=== PATIENT | female | born 1955 | race Native Hawaiian/Other Pacific Islander ===

== ENCOUNTER 2018-01-05 12:02 | Observation (INO) | payer BC ==
[~2018-01-05] VITALS: Ht 167.6 cm; Wt 108.4 kg
[~2018-01-05 12:02] MED LIST: ADIPEX PO; ALPR0.5T24 PO; CARV12.5 PO; CEFU250T2 PO; DULO60CA2 OR; ESGIC-PLUS PO; HYDR25TA60 PO; LORCET 5-325 MG1 TAB PO; MOBIC15 MG PO; NEXIUM40 MG PO; ONDA4TAB3 PO; TRIM800T12 PO; VICTOZA18 MG/3 ML SC
[2018-01-05 13:08] LABS: PLATELET COUNT 202 K/uL (152-353)
[2018-01-05 13:09] VITALS: BP 148/75; TEMP 97.5; Ht 167.6 cm; Wt 108.4 kg
[2018-01-05] MEDS ORDERED: FIORICET 50-3001 CAP PO (13:21)
[2018-01-05] MEDS ORDERED: ACET-655 PO (13:22)
[2018-01-05 13:23] LABS: POTASSIUM 3.7 mmol/L (3.6-5.2)
[2018-01-05] MEDS ORDERED: BYSTOLIC5 MG PO (13:23)
[2018-01-05] MEDS ORDERED: DEXILANT60 M1 PO (13:26)
[2018-01-05] MEDS ORDERED: TIZA4TAB5 PO (13:28)
[2018-01-05 16:23] VITALS: BP 134/75; TEMP 98.3
[2018-01-05 20:00] VITALS: BP 126/52; TEMP 97.8
[2018-01-06] VITALS: BP 131/56; TEMP 98.1
[2018-01-06 04:00] VITALS: BP 136/65; TEMP 97.9
[2018-01-06 06:39] LABS: PLATELET COUNT 182 K/uL (152-353)
[2018-01-06 06:49] LABS: POTASSIUM 3.7 mmol/L (3.6-5.2)
[2018-01-06 08:00] VITALS: BP 147/72; TEMP 97.8
--- NOTE | 2018-01-06 10:16 | NUR ---
DR. GREGORY MADE ROUND. Pt. TO D/C HOME.
--- NOTE | 2018-01-06 11:51 | NUR ---
IV D/C'd. DISCHARGE INSTRUCTION SIGNED AND GIVEN. Pt. EXIT OUT FRONT ENTRANCE VIA AMBULATING.
== END 2018-01-06 11:51 | disposition home or self-care (01) ==
LOC: MED/SURG 12:02
PROVIDERS: Emergency Medicine; ADMIT Nurse Practitioner Family
DX: R06.02 Shortness of breath (principal); L03.116 Cellulitis of left lower limb; L03.115 Cellulitis of right lower limb; M79.89 Other specified soft tissue disorders; E78.4 Other hyperlipidemia; E83.42 Hypomagnesemia; D64.89 Other specified anemias; E87.1 Hypo-osmolality and hyponatremia
CPT/HCPCS: 36415; 36591; 80053; 82607; 82746; 83735; 83880; 84443; 85027; 93005; 96374; 99220; G0378; G0379; J1940

== ENCOUNTER 2019-10-11 18:04 | Emergency (ER) | payer BC ==
[~2019-10-11] VITALS: Ht 167.6 cm; Wt 113.4 kg
[2019-10-11 18:04] VITALS: TEMP 100
[~2019-10-11 18:04] MED LIST changes: +ACET-655 PO; +BYSTOLIC5 MG PO; +DEXILANT60 M1 PO; +FIORICET 50-3001 CAP PO; +TIZA4TAB5 PO
[2019-10-11 20:57] VITALS: BP 146/66
== END 2019-10-11 21:05 | disposition home or self-care (01) ==
LOC: ED 18:06
DX: S22.42XA Multiple fractures of ribs, left side, initial encounter for closed fracture (principal); S60.222A Contusion of left hand, initial encounter; S60.221A Contusion of right hand, initial encounter; S80.02XA Contusion of left knee, initial encounter; S80.01XA Contusion of right knee, initial encounter; M25.561 Pain in right knee; W18.30XA Fall on same level, unspecified, initial encounter; Y92.007 Garden or yard of unspecified non-institutional (private) residence as the place of occurrence of the external cause
CPT/HCPCS: 99283

== ENCOUNTER 2021-04-14 10:16 | Outpatient (CLI) | payer OTHER | END 2021-04-14 23:02 | disposition home or self-care (01) | LOC: CT 10:16 | PROVIDERS: ATTEND Internal Medicine | DX: R63.4 Abnormal weight loss (principal); R53.83 Other fatigue ==

== ENCOUNTER 2021-04-21 12:54 | Outpatient (CLI) | payer OTHER | END 2021-04-21 22:22 | disposition home or self-care (01) | LOC: CT 12:54 → MRI 14:00 → RESP 15:00 → CT 22:22 | PROVIDERS: ATTEND Internal Medicine | DX: R53.83 Other fatigue (principal); R63.4 Abnormal weight loss; R25.1 Tremor, unspecified ==